=== PATIENT | female | born 1975 | race Caucasian/White ===

== ENCOUNTER 2022-04-07 12:27 | Emergency (ER) | payer BC ==
[~2022-04-07] VITALS: Ht 162.6 cm; Wt 75.0 kg
[2022-04-07 12:28] VITALS: TEMP 98
[2022-04-07 13:43] LABS: BASO # 0.1 K/mm3 (0.0-0.2); BASO % 0.5 % (0.0-2.0); EOS # 0.1 K/mm3 (0.0-0.7); EOS % 0.6 % (0.0-4.0); GRAN # 9.3 K/mm3 (1.4-6.5); GRAN % 84.2 % (42.2-75.2); HEMATOCRIT 41.9 % (37.0-47.0); LYMPH # 1.2 K/mm3 (1.2-3.4); LYMPH % 11.1 % (20.0-51.0); MEAN CELL VOLUME 92 fl (80.0-100.0); MEAN CORPUSCULAR HEMOGLOBIN 33 pg (27-31); MEAN CORPUSCULAR HGB CONC 36 g/dl (33.0-37.0); MEAN PLATELET VOLUME 8.6 fl (7.4-10.4); MONO # 0.3 K/mm3 (0.1-0.6); MONO % 3.1 % (1.7-9.3); PLATELET COUNT 248 K/mm3 (130-400); RED BLOOD COUNT 4.58 M/mm3 (4.10-5.30); REDCELL DISTRIBUTION WIDTH-CV 12.1 % (11.5-14.5)
[2022-04-07 14:00] LABS: ALBUMIN 3.9 gm/dL (3.5-5.0); BILIRUBIN,TOTAL 0.7 mg/dL (0.2-1.2); CALCIUM 8.9 mg/dL (8.4-10.2); CREATININE, serum 0.83 mg/dL (0.57-1.11); POTASSIUM 4.2 mmol/L (3.5-4.5); TOTAL PROTEIN 7.7 gm/dL (6.2-8.1)
[2022-04-07 14:42] LABS: COLLECTION METHOD CLEAN CATCH
[2022-04-07 14:55] LABS: MUCOUS Present (NOT PRESENT); PH 7 (5-8); SQUAMOUS EPITHELIAL 0-2 /hpf (0-10); URINE APPEARANCE Clear (CLEAR/HAZY); URINE BACTERIA Moderate /hpf (NONE SEEN); URINE BILIRUBIN Negative (NEGATIVE); URINE BLOOD Negative (NEGATIVE); URINE COLOR Straw (YELLOW); URINE GLUCOSE Negative (NEGATIVE); URINE KETONE Negative (NEGATIVE); URINE LEUKOCYTE ESTERASE Negative (NEGATIVE); URINE NITRATE Negative (NEGATIVE); URINE PROTEIN(semi-quant) Negative (NEGATIVE); URINE RBC 0-2 /hpf (0-2); URINE UROBILINOGEN Negative (NEGATIVE)
[2022-04-07 15:37] VITALS: BP 107/65; PULSE 66
== END 2022-04-07 15:50 | disposition home or self-care (01) ==
LOC: COL.ER 12:27
PROVIDERS: Emergency Medicine; Nurse Practitioner
DX: R56.9 Unspecified convulsions (principal)
CPT/HCPCS: J1200; J1885; J2270

== ENCOUNTER 2022-06-16 10:31 | Day surgery (SDC) | payer BC ==
[~2022-06-16] VITALS: Ht 162.6 cm; Wt 71.2 kg
[2022-06-16] MEDS ORDERED: VALTREX 50500 MG/TAB PO (11:02)
[2022-06-16] MEDS ORDERED: ESTRACE 1MG1 MG/TAB PO (11:03)
[2022-06-16 11:48] VITALS: BP 123/85; PULSE 107; TEMP 97.5
[2022-06-16 12:17] VITALS: BP 117/71; PULSE 86; TEMP 97.8
[2022-06-16 12:30] VITALS: BP 113/75; PULSE 79
[2022-06-16 12:45] VITALS: BP 114/72; PULSE 75
[2022-06-16 13:00] VITALS: BP 116/88; PULSE 89
[2022-06-16 13:15] VITALS: BP 112/72; PULSE 69
--- NOTE | 2022-06-16 14:35 | NUR ---
1215 Pt returns from endo procedure via cart and RN assist to [facility] [place] [facility]. Pt ambulates from cart to recliner with RN assist. Monitors on and alarms set. Call light within reach. Report received from MONTRELL Valentino. Pt alert and oriented. Pt requests Sprite and saltines. Pt denies any pain or nausea that is different than preop status. Pt's remains in room. 1245 Pt taking food and drink well. No physical complications noted. Pt has been expressing concern about results from the procedure. 1400 Discharge instructions given to pt. All questions answered to their satisfaction. Handed to pt and are a thank you card and discharge information. 1435 Pt transferred out of the hospital via wheelchair and this RN assist to private vehicle driven by pt's .
== END 2022-06-16 14:35 | disposition home or self-care (01) ==
LOC: SDCO 10:31
DX: K29.30 Chronic superficial gastritis without bleeding (principal); K44.9 Diaphragmatic hernia without obstruction or gangrene; K92.1 Melena; F41.1 Generalized anxiety disorder
CPT/HCPCS: J2704